=== PATIENT | male | born 1980 | race Caucasian/White ===

== ENCOUNTER → 2023-09-03 15:34 | Outpatient (BNVA) | payer MEDICAID, SELFPAY | PROVIDERS: Visit Provider Registered Nurse Neonatal Intensive Care | DX: R50.9 Fever, unspecified (principal); U07.1 COVID-19 | CPT/HCPCS: 87400; 87426 ==

== ENCOUNTER 2024-09-30 11:11 | Outpatient (CLI) | payer MEDICAID, SELFPAY | END 2024-09-30 11:12 | disposition home or self-care (01) | LOC: SLEEP 11:15 | PROVIDERS: PCP Family Medicine; Visit Provider Family Medicine | DX: G47.33 Obstructive sleep apnea (adult) (pediatric) (principal) | CPT/HCPCS: G0399 ==